=== PATIENT | male | born 1960 | race African-American/Black ===

== ENCOUNTER 2024-09-24 14:12 | Emergency (ER) | payer MEDICARE, MEDICAID, SELFPAY ==
--- NOTE | ~2024-09-24 | CT_ITS ---
CT cervical spine wo con Ordering provider: Regina Emerson APRN History: . fall, neck pain . Comparison: None. Technique: CT of the cervical spine was performed without contrast. Sagittal and coronal reformatted images were also obtained and reviewed. Automated exposure control and iterative reconstruction ashley hnique were employed. The dose-length product was 258.08 mGy-cm. FINDINGS: VERTEBRAE: No subluxation or acute fracture. The occipital condyles are intact. Degenerative changes of the spine. DISC SPACES: Normal. Multilevel facet joint disease. Narrowing of the left foramina at the level of C 3-C4 and C4-C5. PARASPINOUS SOFT TISSUES: Normal. Cystic changes are seen in the lungs. Clinical correlation advised. IMPRESSION: No acute osseous abnormality cervical spine. Reviewed, dictated and finalized at location A.
--- NOTE | ~2024-09-24 | CT_ITS ---
CT brain wo con Ordering provider: Regina Emerson APRN History: 64 years Male with . fall, hit head . Comparison: None. Technique: CT of the head without contrast. Radiation reduction technique utilized.The dose-length pr oduct was 605.33 mGy-cm. FINDINGS: BRAIN PARENCHYMA AND CSF SPACES: Mild leukoaraiosis and diffuse cortical atrophy. Mild atheromatous d isease. No midline shift, mass effect or hemorrhage. The brain parenchyma and CSF spaces are otherwi se normal. VISUALIZED PARANASAL SINUSES: Right sphenoid and left frontal sinus disease. Otherwise, Well aerated. MASTOIDS: Well aerated. BONES: The bones appear intact. SOFT TISSUES: Visualized nasopharynx is normal. Superficial soft tissues are normal. IMPRESSION: No acute intracranial findings. Reviewed, dictated and finalized at location A.
[2024-09-24 14:16] VITALS: BP 112/68; PULSE 94; RESP 16; TEMP 36.6; O2SAT 99
--- NOTE | 2024-09-24 14:30 | ED_ITS ---
HPI - Fall General Chief Complaint: Fall Stated Complaint: fall Time Seen by Provider: 09/24/24 14:14 History of Present Illness HPI Narrative: Patient is a 64-year-old male who presents to the ER after sustaining a fall. He reports he does not remember the mechanism of his fall, but he believes he hit his head, although he doesn't think he lost consciousness. Patient endorses neck pain but denies any other pain on his body. Per patient's chart he has a history of a TBI. Patient reports he has history of diabetes. He denies any numbness/tingling/weakness, recent fevers, abdominal pain, back pain or urinary symptoms. Related Data Allergies Allergy/AdvReac Type Severity Reaction Status Date / Time No Known Allergies Allergy Unverified 10/20/23 12:44 Review of Systems Review of Systems: All systems reviewed & are unremarkable except as noted in HPI and below Exam Narrative: GENERAL: Well appearing, poorly nourished, non-toxic, in no acute distress. HEAD: Normocephalic, dime-sized abrasion to center of pt's forehead NECK: Supple. No adenopathy, no masses. No pain with palpation. RESPIRATORY: Airway patent, respirations nonlabored. Clear to auscultation bilaterally, no rales, rhonchi, wheezing. CARDIOVASCULAR: Regular rate and rhythm without murmurs, rubs, or gallops. Peripheral pulses 2+ and equal bilaterally. ABDOMINAL: Soft, nontender, nondistended, no hepatosplenomegaly. Normoactive BS. MUSCULOSKELETAL: Moves all extremities. Strength/ROM intact without gross deformities. SKIN: Warm, dry, normal color. No rashes. NEURO: A&O X3. Speech clear. Cranial nerves intact. PSYCHIATRIC: Appropriate mood and affect. Normal interaction. Course Vital Signs Vital signs: Vital Signs Temperature 36.6 C 09/24/24 14:16 Pulse Rate 94 09/24/24 14:16 Respiratory Rate 16 09/24/24 14:16 Blood Pressure 112/68 09/24/24 14:16 Pulse Oximetry 99 09/24/24 14:16 Oxygen Delivery Room Air 09/24/24 14:16 Temperature 37.0 C 09/24/24 19:42 Pulse Rate 94 09/24/24 14:16 Respiratory Rate 16 09/24/24 14:16 Blood Pressure 112/68 09/24/24 14:16 Pulse Oximetry 99 09/24/24 14:16 Oxygen Delivery Room Air 09/24/24 14:16 MDM - Fall MDM Narrative Medical decision making narrative: Patient is a 64-year-old male who presents to the ER after sustaining a fall. He reports he does not remember the mechanism of his fall, but he believes he hit his head, although he doesn't think he lost consciousness. Patient endorses neck pain but denies any other pain on his body. Per patient's chart he has a history of a TBI. Patient reports he has history of diabetes. He denies any numbness/tingling/weakness, recent fevers, abdominal pain, back pain or urinary symptoms. Labs Ordered: urinalysis Imaging Ordered: CT head, CT cervical spine Medications Ordered: None necessary Results: Patient's head CT indicates No acute intracranial findings. Pt's cervical spine CT scan indicates No acute osseous abnormality cervical spine. Pt's urinalysis indicates patient has a UTI. Diagnosis: Urinary tract infection, recent fall with no injuries Patient Education/Shared MDM: Results shared with patient. Patient advised to follow-up with his PCP as soon as possible. He will be discharged home with a prescription for Bactrim. Strict return precautions provided. Patient verbalized understanding and is in agreement with plan. Vital signs stable at time of discharge. All questions answered. Differential Diagnosis Differential diagnosis: Likely concussion with loss of consciousness, concussion without loss of consciousness and other (cervical strain, cervical sprain, subdural hemorrhage) Lab Data Attestation: I reviewed the patient's lab results. Labs: Lab Results 09/24/24 Range/Units 18:25 Urine Color Yellow (Yellow) Urine Appearance Clear (Clear) Urine pH 7.5 (5.0-9.0) Ur Specific [place] 1.044 H (1.001-1.035) Urine Protein 3+ H (Negative) mg/dL Urine Glucose (UA) 2+ H (Negative) mg/dL Urine Ketones Trace H (Negative) mg/dL Ur Blood (Man) 3+ H (Negative) Urine Nitrate Positive H (Negative) Urine Bilirubin Negative (Negative) Urine Urobilinogen 1.0 (<2.0) mg/dL Leukocyte Esterase Rfl Trace H (Negative) SERINA/UL Urine RBC >100 H (0-2) /hpf Urine WBC 21-50 H (0-3) /hpf Ur Squamous Epith Cells None seen (Few) /hpf Urine Bacteria 1+ H /hpf Urine Casts 0-2 Imaging Data Attestation: I personally reviewed and interpreted this imaging study as follows: Radiologist's impression: Impressions Head CT 09/24/24 15:00 IMPRESSION: No acute intracranial findings. Cervical Spine CT 09/24/24 15:08 IMPRESSION: No acute osseous abnormality cervical spine. Discharge Plan Discharge Clinical Impression: Urinary tract infection, Concussion with loss of consciousness, Fall Patient Disposition: NH Long Term/Asst Living Condition: Stable Instructions: Antibiotic Form, Concussion (ED), Catheter-associated Urinary Tract Infection (ED) Additional Instructions: Please return to the ER with any worsening symptoms. Follow-up with primary care provider as soon as possible. Take all medications as prescribed, including regularly scheduled medications. Complete your full dose of antibiotics. Patient Language: Turkmen Prescriptions: New sulfamethoxazole-trimethoprim [Bactrim DS] 800-160 mg tablet 1 tablet PO Q12H 7 Days Qty: 14 0RF Follow-up/Referrals: Loida,MD Karon [Primary Care Provider] - Stand Alone Forms: Snf Discharge Time of Disposition: 19:15
--- OUTSIDE RECORDS SUMMARY | 2024-09-24 15:07 | XMS_ITS | Clinical Summary ---
Author Organization [facility] Address [address] [place] [address] Care Team Providers Care Company Dancer Name Role Phone Karon Mariscal MD Primary Care Provider [phone] Raz Del Toro DPM Unavailable [phone] Allergies No known active allergies Medications metFORMIN (GLUCOPHAGE) 1000 MG Tablet 11/08/2015 Acti ve lisinopril (PRINIVIL, ZESTRIL) 5 MG Tablet 12/05/2015 Active VENTOLIN HFA 108 (90 BASE) MCG/ACT Aerosol Solution 12/21/2015 Active LEVEMIR FLEXTOUCH 100 UNIT/ML Solution Pen-injector 12/01/2015 Active ziprasidone (GEODON) 40 MG Capsule 12/25/2015 Active pravastatin (PRAVACHOL) 40 MG Tablet 12/12/2015 Active glipiZIDE (GLUCOTROL XL) 10 MG TABLET SR 24 HR 12/23/2015 Active HYDROcodone-acet aminophen (NORCO) 5-325 MG Tablet Take 1 Tab by mouth every 6 hours as needed for Pain. 15 Tab 0 05/24/2016 Active benztropine (COGENTIN) 1 MG Tablet 09/10/2016 Active haloperidol (HALDOL) 5 MG Tablet 09/08/2016 Active traZODone (DESYREL) 100 MG Tablet 09/10/2016 Active Active Problems Problem Noted Date Diagnosed Date [place] or callus 01/03/2016 Dermatophytosis of nail 01/03/2016 Diabetic polyneuropathy vilma ciated with type 2 diabetes mellitus 01/03/2016 Immunizations Immunization Administration Dates Next Due Covid-19, Mrna, Lnp-s, Pf, 30 Mcg/0.3 Ml Dose (P fizer) 03/08/2021 Family History Medical History Relation Name Comments Cancer Mother Relation Name Status Comments Father Mother Social History Tobacco Use Types Packs/Day Years Used Date Smoking Tobacco: Every Day Cigarettes 1 45 Smokeless Tobacco: Never Tobacco Cessation:Ready to Q uit: No; Counseling Given: No Alcohol Use Standard Drinks/Week Comments No 0 (1 standard drink = 0.6 oz pur e alcohol) Sexually Active Control Partners Comments Yes Female Sex and Gender Information Value Date Recorded Sex Assigned at Not on file Legal Sex Male 11:58 PM CDT Gender Identity Not on file Sexual Orientation Not on file Occupation Industry Job Start Date Job End Date disability Not on file Not on file Not on file Last Filed Vital Signs Vital Sign Reading Time Taken Comments Blood Pressure 114/70 07/07/2018 2:11 PM [employer] AND B[employer] CASHIER Pulse 79 07/07/2018 2:11 PM [employer] C[employer] Temperature 36.4 C (97.5 F) 07/07/2018 2:11 PM [employer] AND [employer] CASHIER Respiratory Rate 19 07/07/2018 2:11 PM [employer] C[employer]IER Oxygen Saturation 96% 07/07/2018 2:11 PM [employer] AND B[employer]AGE CASHIER Inhaled Oxygen Concentration - - Weight 78.6 kg (173 lb 3.2 oz) 07/07/2018 2:11 P M [employer] C[employer] Height 180.3 cm (5' 11 ) 07/07/2018 2:11 PM [employer] AND BEVERAGE CASHIER Body Mass Index 24.16 07/07/2018 2:11 PM [employer] AND [employer] CASHIER Plan of Treatment Health Maintenance Due Date Last Done Comments Diabetes: Eye Exam 1961 Diabetes: Foot Exam 1961 Diabetes: Hemoglobin A1c 1961 Diabetes: Nephropathy Screening 09/06/1979 Colonoscopy 2006 Colorectal Cancer Screening 2006 Cologuard 09/06/2011 Immunochemical Fecal Occult Blood 09/06/2011 Zoster Immunization (1 of 2) 09/06/2011 PSA Discussion 2016 Pneumococcal Immunization (50+ years) (2 of 2 - PCV) 09/16/2016 09/17/2015 Respiratory Syncytial Virus (RSV) Immunization (Adult) (1 - Risk 60-74 years 1-dose series) 2021 Influenza Immunization (#1) 01/31/202406/02, 08/16/2019, 02/18/2016, Additional history exists SARS-COV-2 Immunization ( season) 2024 03/08/2021, 02/11/2021 Pneumococcal Immunization Combined Discontinued 09/17/2015 DTaP/Tdap/Td Immunization Discontinued 01/14/2016 TdaP Immunization Completed 01/14/2016 Hepatitis B Immunization Aged Out No longer eligible based on patient's age to complete this topic Meningococcal Immunization (ACWY) Aged Out No longer eligible based on patient's age to complete this topic Rotavirus Immunization Aged Out No lo nger eligible based on patient's age to complete this topic Insurance MEDICARE [place]ICAID [place] Care Teams Company Dancer Relationship Specialty Start Date End Date Karon Mariscal MD [address] [place] [address] PCP - General Internal Medicine 01/03/16 Raz Del Toro DPM [address] [place] [address] Podiatry 01/03/16
[2024-09-24 18:59] LABS: Add Urine Microscopic? YES; Appearance Urine Clear (Clear); Bilirubin Urine Negative (Negative); Blood Urine 3+ (Negative); Color Urine Yellow (Yellow); Glucose Urine UA 2+ mg/dL (Negative); Ketones Urine Trace mg/dL (Negative); Leukocyte Esterase Ur Trace LEU/UL (Negative); Nitrate Urine Positive (Negative); Protein Urine 3+ mg/dL (Negative); Specific Grav Ur 1.044 (1.001-1.035); pH Urine 7.5 (5.0-9.0)
[2024-09-24 19:00] LABS: Bacteria Urine 1+ /hpf; Non Pathogenic Casts 0-2; RBC Urine >100 /hpf (0-2); Squamous Epithelial Cell Urine None Seen /hpf (Few); WBC Urine 21-50 /hpf (0-3)
[2024-09-24] MEDS: SULFAMETHOXAZOLE/TRIMETHOPRIM 800/160 MG DS TABLET 1 TAB PO (19:32)
[2024-09-24 19:42] VITALS: TEMP 37
--- NOTE | 2024-09-24 23:46 | PC.NURSE ---
Received report from BRIDGET Rosario for cont. of care. Pt lying on stretcher respirations even and unlabored. Pt appears in NAD, waiting on transport. VS WNL
[2024-09-24 23:47] VITALS: BP 120/71; PULSE 92; RESP 16; O2SAT 99
--- NOTE | 2024-09-25 03:10 | PC.NURSE ---
Pt provided with sandwich and apple juice.
[2024-09-25 04:27] VITALS: BP 119/70; PULSE 97; RESP 18; O2SAT 97
== END 2024-09-25 04:31 ==
PROVIDERS: Emergency Provider Registered Nurse; PCP Internal Medicine
DX: S06.0X0A Concussion without loss of consciousness, initial encounter (principal); N39.0 Urinary tract infection, site not specified; E11.9 Type 2 diabetes mellitus without complications; Z87.820 Personal history of traumatic brain injury; W19.XXXA Unspecified fall, initial encounter
CPT/HCPCS: 51702; 70450; 72125; 81001; 87086; 87186; 99284; A9270

== ENCOUNTER 2025-03-24 10:39 | Emergency (ER) | payer MEDICARE, MEDICAID, SELFPAY ==
--- NOTE | ~2025-03-24 | CT_ITS ---
CT HEAD NON-CONTRAST Clinical History: Fall Comparison: 09/24/2024 Technique: Unenhanced axial images skull base to vertex Coronal, sagittal reformats CT images acquired with automatic exposure control for dose reduction DLP: 605 mGy-cm Findings: Mild age-related atrophy. Mild white matter changes, typically chronic microvascular ischemic disease. Sulci, ventricles: Unremarkable. No intracerebral hemorrhage. No evidence acute territorial infarct. No mass effect, midline shift. Bony calvarium intact. Visualized paranasal sinuses: Clear. Mastoid air cells: Clear. IMPRESSION: 1. No acute intracranial findings. Reviewed, dictated and finalized at location R.
[2025-03-24 10:37] VITALS: BP 126/71; PULSE 95; RESP 16; TEMP 36.7; O2SAT 100
[2025-03-24 11:10] LABS: Hematocrit 40.0 % (42.0-52.0); Hemoglobin 12.4 g/dL (14.0-18.0); Immature Granulocyte Percent A 1.3 % (0-0.5); Lymphocytes Absolute Auto 2.07 K/mm3 (0.9-3.2); Mean Corpuscular HGB Conc 31.0 g/dl (32-36); Mean Corpuscular Hemoglobin 30.3 pg (26-34); Mean Corpuscular Volume 97.8 fl (80-100); Nucleated Red Blood Cells Absolute Auto 0.000 K/mm3 (0.0-0.012); Nucleated Red Blood Cells Perc 0.0 % (0.0-0.2); Platelet Count Result 297 k/mm3 (150-375); Red Blood Count 4.09 M/mm3 (4.6-6.20); White Blood Count 6.8 K/mm3 (4.5-10.0)
[2025-03-24 11:15] LABS: Add Urine Microscopic? YES; Appearance Urine Turbid (Clear); Glucose Urine UA 2+ mg/dL (Negative); Leukocyte Esterase Ur 3+ LEU/UL (Negative); Nitrate Urine Negative (Negative); Non Pathogenic Casts 0-2; Specific Grav Ur 1.017 (1.001-1.035)
[2025-03-24 11:25] LABS: Alanine Aminotransferase 22 U/L (6-50); Albumin Level 4.0 g/dL (3.5-5.1); Alkaline Phosphatase 94 U/L (38-126); Anion Gap 8 mmol/L (4-12); Aspartate Amino Transferase 21 U/L (17-59); Bilirubin,Total 0.2 mg/dL (0.2-1.3); Blood Urea Nitrogen 22 mg/dL (9-20); Calcium 9.5 mg/dL (8.4-10.2); Carbon Dioxide 31 mmol/L (22-30); Chloride 99 mmol/L (98-107); Estimated Glomerular Filt Rate > 60; Glucose 273 mg/dL (65-110); Potassium 4.8 mmol/L (3.4-5.0); Sodium 138 mmol/L (137-145); Total Protein 7.1 g/dL (6.3-8.2)
[2025-03-24] MEDS: cefTRIAXone 1 GM in SODIUM CHLORIDE 0.9% IV 50 ML 100 ML IVPB (11:43)
--- NOTE | 2025-03-24 12:06 | ED_ITS ---
HPI - Fall General Chief Complaint: Fall Stated Complaint: fall Time Seen by Provider: 03/24/25 10:48 History of Present Illness HPI Narrative: Patient is a 64-year-old male with history of dementia who presents ER after a fall at his care facility. Small area bruising posterior occiput. Patient is in no distress this time. He tell me how he fell. He denies any pain. Related Data Allergies Allergy/AdvReac Type Severity Reaction Status Date / Time No Known Allergies Allergy Unverified 10/20/23 12:44 Review of Systems 2 Review of Systems: ROS unobtainable: Yes unobtainable due to mental status PMFSH Past Medical History Medical History (Updated 03/24/25 @ 12:13 by Ian Aguillon MD) Type 2 diabetes mellitus Schizophrenia Chronic hepatitis C Dementia COPD (chronic obstructive pulmonary disease) Hyperlipidemia Subdural hemorrhage Exam 2 Narrative: GENERAL: Well-appearing, well-nourished, and in no acute distress. HEAD: Normocephalic, atraumatic. ENT: Mucous membranes moist. NECK: Supple. CHEST: Clear to auscultation. No respiratory distress. HEART: Regular rate and rhythm. Normal peripheral pulses. ABDOMEN: Soft, nontender, nondistended. EXTREMITIES: Normal range of motion. No edema. SKIN: Warm, dry, no rash. NEURO: Alert and oriented x2. Course Course Emergency Course: Evidence of UTI. Will receive ceftriaxone here. Discharge back to his facility. Otherwise lab work and imaging unremarkable. Vital Signs Vital signs: Vital Signs Temperature 98.1 F 03/24/25 10:37 Pulse Rate 95 03/24/25 10:37 Respiratory Rate 16 03/24/25 10:37 Blood Pressure 126/71 03/24/25 10:37 Pulse Oximetry 100 03/24/25 10:37 Oxygen Delivery Room Air 03/24/25 10:37 Temperature 98.1 F 03/24/25 10:37 Pulse Rate 95 03/24/25 10:37 Respiratory Rate 16 03/24/25 10:37 Blood Pressure 126/71 03/24/25 10:37 Pulse Oximetry 100 03/24/25 10:37 Oxygen Delivery Room Air 03/24/25 10:37 MDM - Fall Lab Data Attestation: I reviewed the patient's lab results. 03/24/25 10:57 10/24/25 10:57 Labs: Lab Results 03/24/25 Range/Units 10:57 WBC 6.8 (4.5-10.0) K/mm3 RBC 4.09 L (4.6-6.20) M/mm3 Hgb 12.4 L (14.0-18.0) g/dL Hct 40.0 L (42.0-52.0) % MCV 97.8 (80-100) fl MCH 30.3 (26-34) pg MCHC 31.0 L (32-36) g/dl RDW 13.5 (11.5-14.5) % Plt Count 297 (150-375) k/mm3 MPV 10.9 H (7.4-10.4) fl Immature Gran % (Auto) 1.3 H (0-0.5) % Neut % (Auto) 50.9 (45.5-73.1) % Lymph % (Auto) 30.4 (18.3-44.2) % [place] % (Auto) 14.2 H (2.6-8.5) % Eos % (Auto) 2.2 (0-4.4) % Baso % (Auto) 1.0 (0.2-1.2) % Lymph # (Auto) 2.07 (0.9-3.2) K/mm3 [place] # (Auto) 1.0 H (0.1-0.6) K/mm3 Eos # (Auto) 0.2 (0-0.3) K/mm3 Baso # (Auto) 0.1 (0.0-0.1) K/mm3 Abs Immat Gran (auto) 0.09 H (0.00-0.031) K/mm3 Absolute Neuts (auto) 3.5 (1.3-6.7) K/mm3 Absolute Nucleated RBC 0.000 (0.0-0.012) K/mm3 Nucleated RBC % 0.0 (0.0-0.2) % Sodium 138 (137-145) mmol/L Potassium 4.8 (3.4-5.0) mmol/L Chloride 99 (98-107) mmol/L Carbon Dioxide 31 H (22-30) mmol/L Anion Gap 8 (4-12) mmol/L BUN 22 H (9-20) mg/dL Creatinine 0.56 L (0.7-1.3) mg/dL Estim Creat Clear Calc Not Reportable Estimated GFR > 60 (59 - ) Glucose 273 H (65-110) mg/dL Calcium 9.5 (8.4-10.2) mg/dL Total Bilirubin 0.2 (0.2-1.3) mg/dL AST 21 (17-59) U/L ALT 22 (6-50) U/L Alkaline Phosphatase 94 (38-126) U/L Total Protein 7.1 (6.3-8.2) g/dL Albumin 4.0 (3.5-5.1) g/dL Urine Color Yellow (Yellow) Urine Appearance Turbid H (Clear) Urine pH 7.5 (5.0-9.0) Ur Specific [place] 1.017 (1.001-1.035) Urine Protein 2+ H (Negative) mg/dL Urine Glucose (UA) 2+ H (Negative) mg/dL Urine Ketones Negative (Negative) mg/dL Ur Blood (Man) Trace (Negative) Urine Nitrate Negative (Negative) Urine Bilirubin Negative (Negative) Urine Urobilinogen 0.2 (<2.0) mg/dL Leukocyte Esterase Rfl 3+ H (Negative) SERINA/UL Urine RBC 0-2 (0-2) /hpf Urine WBC >100 H (0-3) /hpf Ur Squamous Epith Cells None seen (Few) /hpf Urine Bacteria 4+ /hpf Urine Casts 0-2 Imaging Data Radiologist's impression: ITS Impressions Head CT 03/24/25 11:11 IMPRESSION: 1. No acute intracranial findings. Discharge Plan Discharge Clinical Impression: UTI (urinary tract infection), Minor head injury Patient Disposition: Home Condition: Stable Instructions: Antibiotic Form, Urinary Tract Infection in Women (ED) Additional Instructions: You should return to the emergency department if you develop severe nausea and vomiting and are unable to keep liquids down, if you develop severe back/flank or stomach pain, or if your symptoms are not clearly improving at home. Patient Language: Ukrainian Prescriptions: New cefuroxime axetil 500 mg tablet 500 mg PO BID Qty: 14 0RF No Action sulfamethoxazole-trimethoprim [Bactrim DS] 800-160 mg tablet 1 tablet PO Q12H 7 Days Qty: 14 0RF Follow-up/Referrals: Loida,MD Karon [Primary Care Provider] - 1 Week
--- OUTSIDE RECORDS SUMMARY | 2025-03-24 12:21 | XMS_ITS | Clinical Summary ---
Author Organization [facility] Address [address] [place] [address] Care Team Providers Care Facility Examiner Name Role Phone Karon Mariscal MD Primary Care Provider [phone] Raz Del Toro DPM Unavailable [phone] Allergies No known active allergies Medications [...] Active Problems Problem Noted Date Diagnosed Date [place] or callus 01/03/2016 Dermatophytosis of nail 01/03/2016 [...] Comments Blood Pressure 114/70 07/07/2018 2:11 PM DIRECTOR STARS Pulse 79 07/07/2018 2:11 PM DIRECTOR STARS Temperature 36.4 C (97.5 F) 07/07/2018 2:11 PM DIRECTOR STARS Respiratory Rate 19 07/07/2018 2:11 PM DIRECTOR STARS Oxygen Saturation 96% 07/07/2018 2:11 PM DIRECTOR STARS Inhaled Oxygen Concentration - - Weight 78.6 kg (173 lb 3.2 oz) 07/07/2018 2:11 P M DIRECTOR STARS Height 180.3 cm (5' 11) 07/07/2018 2:11 PM DIRECTOR STARS Body Mass Index 24.16 07/07/2018 2:11 PM DIRECTOR STARS Plan of Treatment Health Maintenance Due Date Last Done Comments Diabetes: Eye Exam 1961 Diabetes: Foot Exam 1961 Diabetes: Hemoglobin A1c 1961 Diabetes: Nephropathy Screening 09/06/1979 Medicare Initial AWV [id number] 01/30/1991 Cologuard 2006 Colonoscopy 2006 Colorectal Cancer Screening 2006 Immunochemical Fecal Occult Blood 2006 Zoster Immunization (1 of 2) 09/06/2011 Pneumococcal Immunization (50+ years) (2 of 2 - PCV) 09/16/2016 09/17/2015 Respiratory Syncytial Virus (RSV) Immunization (Adult) (1 - Risk 60-74 years 1-dose series) 2021 Influenza Immunization (#1) 01/30/202506/02, 08/16/2019, 02/18/2016, Additional history exists SARS-COV-2 Immunization ( season) 2025 03/08/2021, 02/11/2021 Pneumococcal Immunization Combined Discontinued 09/17/2015 DTaP/Tdap/Td Immunization Discontinued 01/14/2016 TdaP Immunization Completed 01/14/2016 Hepatitis B Immunization Aged Out No longer eligible based on patient's age to complete this topic Human Papillomavirus (HPV) Immunization Aged Out No longer eligible based on patient's age to complete this topic Meningococcal Immunization (ACWY) Aged Out No longer eligible based on patient's age to complete this topic Rotavirus Immunization Aged Out No lo nger eligible based on patient's age to complete this topic Insurance MEDICARE [place]ICAID [place] Care Teams Facility Examiner Relationship Specialty Start Date End Date Karon Mariscal MD [address] [place], [place] [id number] PCP - General Internal Medicine 01/03/16 Raz Del Toro DPM [address] [place] [address] Podiatry 01/03/16
--- OUTSIDE RECORDS SUMMARY | 2025-03-24 12:21 | XMS_ITS | Patient Health Record ---
Author Organization [facility] Address [address] [place] [address] Care Team Providers Care Childcare Center Director Name Role Phone Rashi Mensah Primary Care Provider Holly Barboza Unavailable [phone] [employer], [facility] Unavailable U navailable Reason For Referral No Information Medications Medication SIG (Take, Route, Frequency, Duration) Notes Start Date End Date Status Lisinopril 5 MG Orally Acti ve Hydrocortisone 2.5 % 1 application to af fected area Rectal Twice a day Active Haloperidol 10 MG 1 tablet Orally Once a day; Duration: 30 day(s) 03/20/2017 Active Pravastatin Sodium 40 MG 1 tablet Orally Once a day Active metFORMIN HCl 1000 MG 1 tablet with meal s Orally Twice a day Active Benztropine Mesylate 1 MG 1 tablet Orall y twice a day; Duration: 30 days Active traZODone HCl 100 MG 1 tablet Orally at bedtime as needed; Duration: 30 days Active Nicoderm CQ 21 MG/24HR 1 patch to skin Transdermal Once a day; Duration: 30 day(s) 01/19/2017 Active buPROPion HCl ER (Smoking Det) 150 MG 1 tablet in the morning Orally twice a day; Duration: 30 days Active Haldol 5 mg two tablets oral at bedtime; Duration: 30 days Active Levemir FlexTouch 100 UNIT/ML Subcutaneous Active HYDROcodone-Acetaminophen 5-325 MG 1 tablet as needed Orally every 6 hrs Active glipiZIDE 10 MG 1 tablet Orally Once a day Active Haloperidol 2 MG 1 tablet Orally ever y morning; Duration: 30 days Active Problems Problem Type SNOMED Code ICD Code Onset Dates Problem Status W/U Status Risk Notes Problem Long-term current use of drug therapy (772559150) Other fpc (current) drug therapy (Z79.899) Active confirmed Problem Anxiety (63573875) Anxiety (F41.9) Active confirmed Problem Paranoid schizophrenia (88792932) Schizophrenia, paranoid type (F20.0) Active confirmed Problem Major depression, single episode (66817837) Major depressive disorder with single episode, remission status unspecified (F32.9) Active confirmed Problem Essential hypertension (12794916) Essential hypertension (I10) Active confirmed Problem Type II diabetes mellitus without complication (616040599) Type 2 diabetes mellitus without complication, unspecified fpc insulin use status (E11.9) Active confirmed Plan Of Treatment Future Test Test Name Order Date Urinalysis In-House, Routine 01/17/2016 Insurance Providers Payer Name Payer Address Payer Phone Subscriber Number Group Number Insured Name Patient Relationship to Insured Coverage Start Date Coverage End Date MEDICARE PART A [address] [place] [phone] [id number] Ángel Perez Self - patient is the insured 0 MEDICAID [address] [place] [phone] [id number] Ángel Perez Self - patient is the insured 7 MEDICARE BEHAV PLATE FILLER [address] [place] [address] [id number] Ángel Perez Self - patient is the insured 7
== END 2025-03-24 13:06 ==
LOC: ANHED 12:18
PROVIDERS: Emergency Provider Emergency Medicine; PCP Internal Medicine
DX: S00.03XA Contusion of scalp, initial encounter (principal); N39.0 Urinary tract infection, site not specified; E11.9 Type 2 diabetes mellitus without complications; E78.5 Hyperlipidemia, unspecified; J44.9 Chronic obstructive pulmonary disease, unspecified; B18.2 Chronic viral hepatitis C; W19.XXXA Unspecified fall, initial encounter
CPT/HCPCS: 36415; 70450; 80053; 81001; 85025; 87086; 87147; 87186; 96365; 99284; J0696